=== PATIENT | male | born 1945 | race Caucasian/White ===

== ENCOUNTER 2016-12-06 16:55 | Observation (INO) ==
[2016-12-06] MEDS ORDERED: ASPIRIN 325 MG TABLET PO STA (17:18)
[2016-12-06] MEDS ORDERED: NITROGLYCERIN SL 0.4 MG TABLET SL PRN (17:18)
[2016-12-06 17:30] LABS: Basophils % 0.5 % (0.0-0.8); Eosinophils # 0.2 10*3/uL (0.0-0.87); Hemoglobin 14.8 GM/DL (14.0-18.0); Immature Granulocytes % 0.4 %; Immature Granulocytes Absolute 0.03 #; Lymphocytes # 2.5 10*3/uL (1.4-4.0); Lymphocytes % 31.6 % (21.2-54.2); Mean Corpuscular HGB Conc 33.6 GM/DL (32-36); Mean Corpuscular Hemoglobin 31 PG (27-34); Mean Corpuscular Volume 92.8 FL (87-102); Mean Platelet Volume 9.1 FL (9.6-12.0); Monocytes # 0.7 10*3/uL (0.11-0.8); Monocytes % 9.3 % (1.7-12.7); Neutrophils # 4.4 10*3/uL (1.4-7.4); Neutrophils % 56.2 % (38.7-73.9); Platelet Count 177 T/CUMM (130-400); Red Blood Count 4.74 MC/CUMM (3.8-5.5); Red Cell Distribution Width 12.7 % (9.3-17.3); White Blood Count 7.9 T/CUMM (4-12)
[2016-12-06] MEDS ORDERED: ASPIRIN 325 MG TABLET ONE (17:36)
[2016-12-06] MEDS ORDERED: NITROGLYCERIN SL 0.4 MG TABLET SL ONE (17:36)
[2016-12-06 17:56] LABS: Bilirubin,Total 0.5 MG/DL (0.2-1.0); Calcium 8.4 MG/DL (8.5-10.1); Osmolality,Calculated 275.5 MOS/KG (273-304); Potassium 3.6 MMOL/L (3.5-5.1); Total Protein 6.5 G/DL (6.4-8.3)
[2016-12-06 18:02] LABS: CKMB % 1.4 %; Troponin I Only < 0.015 NG/ML (0.00-0.045)
[2016-12-06] MEDS ORDERED: POTASSIUM CHLORIDE 20 MEQ TABLET PO PRN (19:13)
[2016-12-06] MEDS ORDERED: ENOXAPARIN 40 MG/0.4 ML SYRINGE SUBCUT SCH (19:30)
[2016-12-06 19:36] LABS: Risk Ratio 2.22; VLDL CHOLESTEROL 23.4 MG/DL
[2016-12-06] MEDS: traZODone 50 MG TABLET PO SCH (20:40)
[2016-12-06] MEDS: TICAGRELOR 90 MG TABLET PO SCH (20:40)
[2016-12-06] MEDS: ZALEPLON 5 MG CAPSULE PO SCH (20:40)
[2016-12-07] MEDS ORDERED: POTASSIUM CHLORIDE RIDER 10 MEQ in PREMIX 1 EACH IV PRN (08:30)
[2016-12-07] MEDS ORDERED: diphenhydrAMINE CAP 25 MG CAPSULE PO ONE (08:30)
[2016-12-07] MEDS ORDERED: DIAZEPAM 5 MG TABLET PO ONE (08:30)
[2016-12-07] MEDS ORDERED: MAGNESIUM SULF RIDER 2 GM in PREMIX 1 EACH IV PRN (08:30)
[2016-12-07] MEDS ORDERED: ROSUVASTATIN 20 MG TABLET PO SCH ×2 (09:00→21:00)
[2016-12-07] MEDS ORDERED: ASPIRIN EC 325 MG TABLET PO SCH (09:00)
[2016-12-07] MEDS ORDERED: methylPREDNISolone SOD SUC 125 MG/2 ML VIAL IV ONE (09:10)
[2016-12-07] MEDS: VALSARTAN/HCTZ 160-12.5 MG TABLET PO SCH (09:17)
[2016-12-07] MEDS: ISOSORBIDE MONONITRATE 30 MG TABLET PO SCH (09:22)
[2016-12-07] MEDS: PANTOPRAZOLE 40 MG TABLET PO SCH (09:22)
[2016-12-07] MEDS: TICAGRELOR 90 MG TABLET PO SCH ×2 (09:22→21:11)
[2016-12-07] MEDS: POTASSIUM CHLORIDE 20 MEQ TABLET PO SCH (09:22)
[2016-12-07] MEDS ORDERED: SODIUM CHLORIDE 0.9% 1,000 ML IV SCH (09:30)
[2016-12-07] MEDS: predniSONE 10 MG TABLET PO SCH (09:32)
[2016-12-07] MEDS: DUTASTERIDE 0.5 MG CAPSULE PO SCH (09:33)
[2016-12-07] MEDS: FAMOTIDINE 20 MG/2 ML VIAL IV SCH ×2 (09:34→21:12)
[2016-12-07] MEDS ORDERED: HEPARIN/NACL 0.9% 2 UNITS/ML 1,000 ML IV ONE (10:04)
[2016-12-07] MEDS ORDERED: LIDOCAINE 1% 20 ML VIAL ONE (10:04)
[2016-12-07] MEDS ORDERED: MIDAZOLAM 2 MG/2 ML VIAL ONE (10:06)
[2016-12-07] MEDS ORDERED: fentaNYL 100 MCG/2 ML VIAL ONE (10:06)
[2016-12-07] MEDS ORDERED: BIVALIRUDIN 250 MG VIAL IV ONE (10:36)
[2016-12-07] MEDS ORDERED: NITROGLYCERIN DRIP 50 MG/250 ML BOTTLE IV ONE (10:55)
[2016-12-07] MEDS ORDERED: TICAGRELOR 90 MG TABLET ONE (11:01)
[2016-12-07] MEDS: ZALEPLON 5 MG CAPSULE PO SCH (21:11)
[2016-12-07] MEDS: traZODone 50 MG TABLET PO SCH (21:12)
[2016-12-08 03:49] LABS: Basophils % 0.1 % (0.0-0.8); Calcium 8.4 MG/DL (8.5-10.1); Hemoglobin 13.5 GM/DL (14.0-18.0); Immature Granulocytes % 0.6 %; Immature Granulocytes Absolute 0.07 #; Lymphocytes % 8.7 % (21.2-54.2); Magnesium 2.1 MG/DL (1.8-2.4); Mean Corpuscular HGB Conc 33.8 GM/DL (32-36); Mean Corpuscular Hemoglobin 31 PG (27-34); Mean Corpuscular Volume 92.6 FL (87-102); Mean Platelet Volume 9.9 FL (9.6-12.0); Monocytes # 0.6 10*3/uL (0.11-0.8); Monocytes % 4.8 % (1.7-12.7); Neutrophils # 10.1 10*3/uL (1.4-7.4); Neutrophils % 85.8 % (38.7-73.9); Osmolality,Calculated 277.5 MOS/KG (273-304); Platelet Count 182 T/CUMM (130-400); Potassium 3.9 MMOL/L (3.5-5.1); Red Blood Count 4.32 MC/CUMM (3.8-5.5); Red Cell Distribution Width 12.7 % (9.3-17.3); White Blood Count 11.8 T/CUMM (4-12)
[2016-12-08 07:51] VITALS: BP 136/85
[2016-12-08] MEDS ORDERED: ASPIRIN EC 81 MG TABLET PO SCH (09:00)
[2016-12-08] MEDS: FAMOTIDINE 20 MG/2 ML VIAL IV SCH (09:05)
[2016-12-08] MEDS: PANTOPRAZOLE 40 MG TABLET PO SCH (09:11)
[2016-12-08] MEDS: DUTASTERIDE 0.5 MG CAPSULE PO SCH (09:11)
[2016-12-08] MEDS: TICAGRELOR 90 MG TABLET PO SCH (09:11)
[2016-12-08] MEDS: ISOSORBIDE MONONITRATE 30 MG TABLET PO SCH (09:12)
[2016-12-08] MEDS: predniSONE 10 MG TABLET PO SCH (09:12)
[2016-12-08] MEDS: VALSARTAN/HCTZ 160-12.5 MG TABLET PO SCH (09:12)
[2016-12-08] MEDS: POTASSIUM CHLORIDE 20 MEQ TABLET PO SCH (09:12)
== END 2016-12-08 11:40 | disposition home or self-care (01) ==
LOC: N.EDINP 16:55 → N.ED 16:55 → N.TELES 19:49
PROVIDERS: ADMIT Internal Medicine; ATTEND Internal Medicine

== ENCOUNTER 2017-02-22 10:51 | Inpatient (IN) ==
[2017-02-22] MEDS ORDERED: ALBUTEROL 2.5 MG/3 ML NEB RESP TX STA ×2 (11:41→13:07)
[2017-02-22 12:06] LABS: Basophils % 0.2 % (0.0-0.8); Eosinophils % 0.2 % (0.00-10.9); Hematocrit 46.4 VOL% (42.0-52.0); Hemoglobin 15.1 GM/DL (14.0-18.0); Immature Granulocytes % 0.3 %; Immature Granulocytes Absolute 0.02 #; Lymphocytes # 1.3 10*3/uL (1.4-4.0); Lymphocytes % 20.9 % (21.2-54.2); Mean Corpuscular HGB Conc 32.5 GM/DL (32-36); Mean Corpuscular Hemoglobin 30 PG (27-34); Mean Corpuscular Volume 92.6 FL (87-102); Mean Platelet Volume 9.4 FL (9.6-12.0); Monocytes # 0.7 10*3/uL (0.11-0.8); Neutrophils # 4.2 10*3/uL (1.4-7.4); Neutrophils % 67.4 % (38.7-73.9); Platelet Count 168 T/CUMM (130-400); Red Blood Count 5.01 MC/CUMM (3.8-5.5); Red Cell Distribution Width 13.2 % (9.3-17.3); White Blood Count 6.2 T/CUMM (4-12)
[2017-02-22] MEDS ORDERED: ALBUTEROL 2.5 MG/3 ML NEB RESP TX ONE ×2 (12:08→14:14)
[2017-02-22] MEDS ORDERED: methylPREDNISolone SOD SUC 125 MG/2 ML VIAL ONE (12:11)
[2017-02-22 12:16] LABS: PT Patient Result 10.1 SECS
[2017-02-22] MEDS ORDERED: methylPREDNISolone SOD SUC 125 MG/2 ML VIAL IV STA (12:24)
[2017-02-22 12:37] LABS: Albumin 3.2 G/DL (3.4-5.0); Bilirubin,Total 0.4 MG/DL (0.2-1.0); Calcium 8.8 MG/DL (8.5-10.1); Osmolality,Calculated 275.1 MOS/KG (273-304); Potassium 4.1 MMOL/L (3.5-5.1); Total Protein 7.2 G/DL (6.4-8.3)
[2017-02-22] MEDS ORDERED: SODIUM CHLORIDE 0.9% 500 ML IV STA (13:07)
[2017-02-22] MEDS ORDERED: ONDANSETRON 4 MG/2 ML VIAL IV PRN (14:45)
[2017-02-22] MEDS ORDERED: DOCUSATE SODIUM 100 MG CAPSULE PO PRN (14:45)
[2017-02-22] MEDS ORDERED: ACETAMINOPHEN 325 MG TABLET PO PRN (14:45)
[2017-02-22] MEDS ORDERED: LEVOFLOXACIN INJ 150 ML IV ONE (16:18)
[2017-02-22] MEDS: SODIUM CHLORIDE 0.9% 1,000 ML IV SCH (16:23)
[2017-02-22] MEDS: LEVOFLOXACIN INJ 750 MG in PREMIX 1 EACH IV SCH (16:25)
[2017-02-22] MEDS: ROSUVASTATIN 20 MG TABLET PO SCH (21:58)
[2017-02-22] MEDS: TICAGRELOR 90 MG TABLET PO SCH (21:58)
[2017-02-22] MEDS: methylPREDNISolone SOD SUC 40 MG/1 ML VIAL IV SCH (22:01)
[2017-02-22] MEDS: ZALEPLON 5 MG CAPSULE PO PRN (23:49)
[2017-02-23 06:48] LABS: Hematocrit 44.2 VOL% (42.0-52.0); Hemoglobin 14.6 GM/DL (14.0-18.0); Immature Granulocytes % 0.4 %; Immature Granulocytes Absolute 0.02 #; Lymphocytes # 0.7 10*3/uL (1.4-4.0); Lymphocytes % 11.4 % (21.2-54.2); Mean Corpuscular Hemoglobin 30 PG (27-34); Mean Corpuscular Volume 91.7 FL (87-102); Mean Platelet Volume 9.4 FL (9.6-12.0); Monocytes # 0.3 10*3/uL (0.11-0.8); Neutrophils # 4.7 10*3/uL (1.4-7.4); Neutrophils % 82.2 % (38.7-73.9); Platelet Count 160 T/CUMM (130-400); Red Blood Count 4.82 MC/CUMM (3.8-5.5); White Blood Count 5.7 T/CUMM (4-12)
[2017-02-23] MEDS: ASPIRIN EC 81 MG TABLET PO SCH (09:55)
[2017-02-23] MEDS: methylPREDNISolone SOD SUC 40 MG/1 ML VIAL IV SCH ×2 (09:55→21:26)
[2017-02-23] MEDS: PANTOPRAZOLE 40 MG TABLET PO SCH (09:55)
[2017-02-23] MEDS: POTASSIUM CHLORIDE 20 MEQ TABLET PO SCH (09:56)
[2017-02-23] MEDS: TICAGRELOR 90 MG TABLET PO SCH ×2 (09:56→21:25)
[2017-02-23] MEDS: SODIUM CHLORIDE 0.9% 1,000 ML IV SCH ×2 (09:56→18:52)
[2017-02-23] MEDS: guaiFENesin 200 MG/10 ML UDCUP PO PRN ×2 (18:23→22:43)
[2017-02-23] MEDS: ZALEPLON 5 MG CAPSULE PO PRN (21:25)
[2017-02-23] MEDS: ROSUVASTATIN 20 MG TABLET PO SCH (21:25)
[2017-02-24 06:54] LABS: Basophils % 0.1 % (0.0-0.8); Hematocrit 42.3 VOL% (42.0-52.0); Hemoglobin 13.5 GM/DL (14.0-18.0); Immature Granulocytes % 0.8 %; Immature Granulocytes Absolute 0.09 #; Lymphocytes # 0.9 10*3/uL (1.4-4.0); Lymphocytes % 8.4 % (21.2-54.2); Mean Corpuscular HGB Conc 31.9 GM/DL (32-36); Mean Corpuscular Hemoglobin 30 PG (27-34); Mean Corpuscular Volume 94.8 FL (87-102); Mean Platelet Volume 9.5 FL (9.6-12.0); Monocytes # 0.4 10*3/uL (0.11-0.8); Monocytes % 3.9 % (1.7-12.7); Neutrophils # 9.6 10*3/uL (1.4-7.4); Neutrophils % 86.8 % (38.7-73.9); Platelet Count 148 T/CUMM (130-400); Red Blood Count 4.46 MC/CUMM (3.8-5.5); Red Cell Distribution Width 13.2 % (9.3-17.3); White Blood Count 11.1 T/CUMM (4-12)
[2017-02-24] MEDS ORDERED: DUTASTERIDE 0.5 MG CAPSULE PO SCH (09:00)
[2017-02-24] MEDS: POTASSIUM CHLORIDE 20 MEQ TABLET PO SCH (09:00)
[2017-02-24] MEDS: PANTOPRAZOLE 40 MG TABLET PO SCH (09:00)
[2017-02-24] MEDS: methylPREDNISolone SOD SUC 40 MG/1 ML VIAL IV SCH (09:00)
[2017-02-24] MEDS: ASPIRIN EC 81 MG TABLET PO SCH (09:00)
[2017-02-24] MEDS: TICAGRELOR 90 MG TABLET PO SCH (09:00)
[2017-02-24] MEDS: SODIUM CHLORIDE 0.9% 1,000 ML IV SCH (09:02)
[2017-02-24] MEDS: LEVOFLOXACIN INJ 750 MG in PREMIX 1 EACH IV SCH (10:16)
[2017-02-24 11:36] VITALS: BP 129/71
== END 2017-02-24 15:57 | disposition home or self-care (01) | DRG 202 ==
LOC: N.ED 10:51 → SUATTDRO 13:13 → N.EDINP 13:13 → N.5E 18:26
PROVIDERS: ADMIT Hospitalist; ATTEND Pediatrics

== ENCOUNTER 2017-11-22 14:30 | Observation (INO) ==
[2017-11-22 15:45] LABS: Basophils % 0.6 % (0.0-0.8); Eosinophils # 0.2 10*3/uL (0.0-0.87); Eosinophils % 3.6 % (0.00-10.9); Hematocrit 38.5 VOL% (42.0-52.0); Hemoglobin 11.9 GM/DL (14.0-18.0); Immature Granulocytes % 0.2 %; Immature Granulocytes Absolute 0.01 #; Lymphocytes # 1.3 10*3/uL (1.4-4.0); Lymphocytes % 25.1 % (21.2-54.2); Mean Corpuscular HGB Conc 30.9 GM/DL (32-36); Mean Corpuscular Hemoglobin 30 PG (27-34); Mean Corpuscular Volume 97.2 FL (87-102); Mean Platelet Volume 9.2 FL (9.6-12.0); Monocytes # 0.4 10*3/uL (0.11-0.8); Monocytes % 7.5 % (1.7-12.7); Neutrophils # 3.4 10*3/uL (1.4-7.4); Platelet Count 182 T/CUMM (130-400); Red Blood Count 3.96 MC/CUMM (3.8-5.5); Red Cell Distribution Width 14.6 % (9.3-17.3); White Blood Count 5.3 T/CUMM (4-12)
[2017-11-22 16:05] LABS: Calcium 8.3 MG/DL (8.5-10.1); Osmolality,Calculated 283.3 MOS/KG (273-304); Potassium 3.7 MMOL/L (3.5-5.1)
[2017-11-22] MEDS ORDERED: ACETAMINOPHEN 325 MG TABLET PO PRN (19:54)
[2017-11-22] MEDS: CEFTAROLINE 600 MG in SODIUM CHLORIDE 0.9% 100 ML IV SCH (21:29)
[2017-11-22] MEDS: ENOXAPARIN 40 MG/0.4 ML SYRINGE SUBCUT SCH (21:31)
[2017-11-23 06:32] LABS: Basophils % 0.8 % (0.0-0.8); Eosinophils # 0.3 10*3/uL (0.0-0.87); Eosinophils % 5.4 % (0.00-10.9); Hematocrit 42.3 VOL% (42.0-52.0); Hemoglobin 12.8 GM/DL (14.0-18.0); Immature Granulocytes % 0.2 %; Immature Granulocytes Absolute 0.01 #; Lymphocytes # 1.6 10*3/uL (1.4-4.0); Lymphocytes % 32.4 % (21.2-54.2); Mean Corpuscular HGB Conc 30.3 GM/DL (32-36); Mean Corpuscular Hemoglobin 30 PG (27-34); Mean Corpuscular Volume 98.8 FL (87-102); Mean Platelet Volume 9.6 FL (9.6-12.0); Monocytes # 0.5 10*3/uL (0.11-0.8); Monocytes % 10.9 % (1.7-12.7); Neutrophils # 2.4 10*3/uL (1.4-7.4); Neutrophils % 50.3 % (38.7-73.9); Platelet Count 202 T/CUMM (130-400); Red Blood Count 4.28 MC/CUMM (3.8-5.5); Red Cell Distribution Width 14.7 % (9.3-17.3); White Blood Count 4.9 T/CUMM (4-12)
[2017-11-23 07:02] LABS: Calcium 8.7 MG/DL (8.5-10.1); Osmolality,Calculated 281.3 MOS/KG (273-304); Potassium 3.6 MMOL/L (3.5-5.1)
[2017-11-23] MEDS: CEFTAROLINE 600 MG in SODIUM CHLORIDE 0.9% 100 ML IV SCH ×2 (09:41→21:14)
[2017-11-23] MEDS: ONDANSETRON 4 MG/2 ML VIAL IV PRN (09:44)
[2017-11-23] MEDS ORDERED: NITROGLYCERIN SL 0.4 MG TABLET SL PRN (16:32)
[2017-11-23] MEDS ORDERED: IBUPROFEN 800 MG TABLET PO PRN (16:33)
[2017-11-23] MEDS ORDERED: ISOSORBIDE MONONITRATE 30 MG TABLET PO SCH (17:00)
[2017-11-23] MEDS ORDERED: VALSARTAN/HCTZ 160-12.5 MG TABLET PO SCH (17:00)
[2017-11-23] MEDS ORDERED: DUTASTERIDE 0.5 MG CAPSULE PO SCH (17:00)
[2017-11-23] MEDS ORDERED: NITROGLYCERIN SL 0.4 MG TABLET SL SCH (17:00)
[2017-11-23] MEDS ORDERED: BEPOTASTINE BESILATE BOTH EYES SCH (21:00)
[2017-11-23] MEDS ORDERED: TICAGRELOR 90 MG TABLET PO SCH (21:00)
[2017-11-23] MEDS ORDERED: NON-FORMULARY MEDICATION (Zolpidem Tartrate [Ambien] 10 MG) PO SCH (21:00)
[2017-11-23] MEDS ORDERED: GABAPENTIN 300 MG CAPSULE PO SCH ×2 (21:00)
[2017-11-23] MEDS ORDERED: ROSUVASTATIN 20 MG TABLET PO SCH (21:00)
[2017-11-23] MEDS: ZOLPIDEM 5 MG TABLET PO SCH (21:12)
[2017-11-23] MEDS: ROSUVASTATIN 20 MG TABLET PO SCH (21:12)
[2017-11-23] MEDS: TICAGRELOR 90 MG TABLET PO SCH (21:13)
[2017-11-23] MEDS: ENOXAPARIN 40 MG/0.4 ML SYRINGE SUBCUT SCH (21:13)
[2017-11-24] MEDS: VALSARTAN/HCTZ 160-12.5 MG TABLET PO SCH (08:52)
[2017-11-24] MEDS: POTASSIUM CHLORIDE 20 MEQ TABLET PO SCH (08:52)
[2017-11-24] MEDS: TICAGRELOR 90 MG TABLET PO SCH ×2 (08:52→20:30)
[2017-11-24] MEDS: ISOSORBIDE MONONITRATE 30 MG TABLET PO SCH (08:53)
[2017-11-24] MEDS: CEFTAROLINE 600 MG in SODIUM CHLORIDE 0.9% 100 ML IV SCH ×2 (08:53→20:39)
[2017-11-24] MEDS ORDERED: ASPIRIN EC 81 MG TABLET PO SCH ×2 (09:00)
[2017-11-24] MEDS ORDERED: DUTASTERIDE 0.5 MG CAPSULE PO SCH (09:00)
[2017-11-24] MEDS: ONDANSETRON 4 MG/2 ML VIAL IV PRN (10:14)
[2017-11-24] MEDS: ROSUVASTATIN 20 MG TABLET PO SCH (20:30)
[2017-11-24] MEDS: ZOLPIDEM 5 MG TABLET PO SCH (20:30)
[2017-11-24] MEDS: ENOXAPARIN 40 MG/0.4 ML SYRINGE SUBCUT SCH (20:30)
[2017-11-25] MEDS ORDERED: HydrOXYzine PAMOATE 25 MG CAPSULE PO PRN (00:40)
[2017-11-25 07:50] VITALS: BP 108/56
[2017-11-25] MEDS: CEFTAROLINE 600 MG in SODIUM CHLORIDE 0.9% 100 ML IV SCH (08:34)
[2017-11-25] MEDS: VALSARTAN/HCTZ 160-12.5 MG TABLET PO SCH (08:34)
[2017-11-25] MEDS: ISOSORBIDE MONONITRATE 30 MG TABLET PO SCH (08:34)
[2017-11-25] MEDS: POTASSIUM CHLORIDE 20 MEQ TABLET PO SCH (08:34)
[2017-11-25] MEDS: TICAGRELOR 90 MG TABLET PO SCH (08:34)
== END 2017-11-25 13:20 | disposition home or self-care (01) ==
LOC: N.ED 14:30 → N.EDINP 14:30 → N.2E 19:53
PROVIDERS: ADMIT Internal Medicine; ATTEND Internal Medicine

== ENCOUNTER 2019-10-15 17:51 | Inpatient (IN) ==
[2019-10-15] MEDS ORDERED: NOREPINEPHRINE 8 MG in SODIUM CHLORIDE 0.9% 242 ML IV PRN (18:19)
[2019-10-15] MEDS ORDERED: SODIUM CHLORIDE 0.9% 500 ML IV STA (18:20)
[2019-10-15] MEDS ORDERED: NOREPINEPHRINE 4 MG/4 ML VIAL IV ONE (18:20)
[2019-10-15 18:47] LABS: Basophils % 0.2 % (0.0-0.8); Eosinophils # 0.1 10*3/uL (0.0-0.87); Hematocrit 39.7 VOL% (42.0-52.0); Hemoglobin 12.2 GM/DL (14.0-18.0); Immature Granulocytes % 0.2 %; Immature Granulocytes Absolute 0.02 #; Lymphocytes # 1.3 10*3/uL (1.4-4.0); Lymphocytes % 15.2 % (21.2-54.2); Mean Corpuscular HGB Conc 30.7 GM/DL (32-36); Mean Corpuscular Volume 95.4 FL (87-102); Mean Platelet Volume 9.6 FL (9.6-12.0); Monocytes % 10.9 % (1.7-12.7); Neutrophils % 72.5 % (38.7-73.9); Platelet Count 252 T/CUMM (130-400); Red Blood Count 4.16 MC/CUMM (3.8-5.5); Red Cell Distribution Width 14.5 % (9.3-17.3); White Blood Count 8.8 T/CUMM (4-12)
[2019-10-15] MEDS ORDERED: MEROPENEM 500 MG in SODIUM CHLORIDE 0.9% 100 ML IV ONE (19:00)
[2019-10-15 19:01] LABS: Albumin 2.4 G/DL (3.4-5.0); Bilirubin,Total 0.5 MG/DL (0.2-1.0)
[2019-10-15 19:07] LABS: Troponin I 0.019 NG/ML (0.00-0.045)
[2019-10-15 19:09] LABS: INR 1.2; PT Patient Result 12.4 SECS (9.8-11.9)
[2019-10-15 19:46] LABS: Apearance,Urine CLEAR (Clear); Bacteria,Urine Occasional /HPF (Few); Bilirubin,Urine Negative (Negative); Blood, Urine Small mg/dL (Negative); Glucose,Urine (UA) Negative (Negative); Hyaline Casts,Urine 7 /LPF (0-3); Ketones,Urine Negative (Negative); Mucus,Urine Occasional /LPF (Occasional); Nitrite,Urine Negative (Negative); Protein,Urine Negative; RBC,Urine 3 /HPF (0-4); Squamous Epithelial Cell,Urine Occasional /HPF (0-10); Urine Color Yellow (Yellow); Urine Urobilinogen < 2.0 EU/DL (0.2-1.0); WBC,Urine 4 /HPF (0-6)
[2019-10-15] MEDS ORDERED: VANCOMYCIN INJ 1,000 MG in SODIUM CHLORIDE 0.9% 250 ML IV PRN (21:11)
[2019-10-15] MEDS: ENOXAPARIN 30 MG/0.3 ML SYRINGE SUBCUT SCH (21:19)
[2019-10-15] MEDS: SODIUM CHLORIDE 0.9% 1,000 ML IV SCH (21:20)
[2019-10-15] MEDS: PANTOPRAZOLE 40 MG VIAL IV SCH (21:22)
[2019-10-15] MEDS: ALBUMIN 25% 12.5 GM in PREMIX 1 EACH IV SCH (22:34)
[2019-10-15] MEDS ORDERED: ZALEPLON 5 MG CAPSULE PO ONE (23:00)
[2019-10-15] MEDS ORDERED: VANCOMYCIN INJ 2,000 MG in SODIUM CHLORIDE 0.9% 500 ML IV ONE (23:00)
[2019-10-15] MEDS: APIXABAN 5 MG TABLET PO SCH (23:55)
[2019-10-16] MEDS: ALBUMIN 25% 12.5 GM in PREMIX 1 EACH IV SCH ×3 (04:42→19:05)
[2019-10-16 05:45] LABS: Basophils % 0.3 % (0.0-0.8); Eosinophils # 0.1 10*3/uL (0.0-0.87); Eosinophils % 1.5 % (0.00-10.9); Hematocrit 37.2 VOL% (42.0-52.0); Hemoglobin 11.4 GM/DL (14.0-18.0); Immature Granulocytes % 0.3 %; Immature Granulocytes Absolute 0.02 #; Lymphocytes % 15.2 % (21.2-54.2); Mean Corpuscular HGB Conc 30.6 GM/DL (32-36); Mean Corpuscular Volume 94.9 FL (87-102); Mean Platelet Volume 9.6 FL (9.6-12.0); Neutrophils % 71.7 % (38.7-73.9); Platelet Count 228 T/CUMM (130-400); Red Blood Count 3.92 MC/CUMM (3.8-5.5); Red Cell Distribution Width 14.5 % (9.3-17.3); White Blood Count 6.6 T/CUMM (4-12)
[2019-10-16] MEDS: SODIUM CHLORIDE 0.9% 1,000 ML IV SCH ×3 (05:55→21:37)
[2019-10-16 06:11] LABS: Albumin 2.4 G/DL (3.4-5.0); Bilirubin,Total 0.6 MG/DL (0.2-1.0); Calcium 8.2 MG/DL (8.5-10.1); Osmolality,Calculated 289.4 MOS/KG (273-304); Risk Ratio 2.62; Total Protein 5.8 G/DL (6.4-8.3); VLDL CHOLESTEROL 23.2 MG/DL
[2019-10-16] MEDS: APIXABAN 5 MG TABLET PO SCH ×2 (08:37→21:28)
[2019-10-16] MEDS: POTASSIUM CHLORIDE 20 MEQ TABLET PO SCH ×3 (11:40→19:04)
[2019-10-16] MEDS: PANTOPRAZOLE 40 MG VIAL IV SCH (19:05)
[2019-10-16] MEDS ORDERED: MEROPENEM 500 MG in SODIUM CHLORIDE 0.9% 100 ML IV SCH (21:00)
[2019-10-16] MEDS ORDERED: MELATONIN 3 MG TABLET PO SCH ×2 (21:00→21:07)
[2019-10-16] MEDS: ENOXAPARIN 30 MG/0.3 ML SYRINGE SUBCUT SCH (21:29)
[2019-10-16] MEDS: MELATONIN 3 MG TABLET PO SCH (21:32)
[2019-10-17] MEDS: ONDANSETRON 4 MG/2 ML VIAL IV PRN ×2 (02:29→16:44)
[2019-10-17 06:50] LABS: Basophils % 0.6 % (0.0-0.8); Eosinophils # 0.1 10*3/uL (0.0-0.87); Eosinophils % 1.5 % (0.00-10.9); Hematocrit 37.6 VOL% (42.0-52.0); Hemoglobin 11.4 GM/DL (14.0-18.0); Immature Granulocytes % 0.5 %; Immature Granulocytes Absolute 0.03 #; Lymphocytes # 1.6 10*3/uL (1.4-4.0); Lymphocytes % 25.2 % (21.2-54.2); Mean Corpuscular HGB Conc 30.3 GM/DL (32-36); Mean Corpuscular Volume 96.4 FL (87-102); Mean Platelet Volume 9.6 FL (9.6-12.0); Monocytes % 10.7 % (1.7-12.7); Neutrophils % 61.5 % (38.7-73.9); Platelet Count 265 T/CUMM (130-400); Red Cell Distribution Width 14.5 % (9.3-17.3); White Blood Count 6.2 T/CUMM (4-12)
[2019-10-17 07:01] LABS: Calcium 8.8 MG/DL (8.5-10.1); Osmolality,Calculated 288.8 MOS/KG (273-304)
[2019-10-17] MEDS: SODIUM CHLORIDE 0.9% 1,000 ML IV SCH (07:01)
[2019-10-17] MEDS ORDERED: VANCOMYCIN INJ 1,000 MG in SODIUM CHLORIDE 0.9% 250 ML IV ONE (09:00)
[2019-10-17] MEDS: MEROPENEM 500 MG in SODIUM CHLORIDE 0.9% 100 ML IV SCH ×2 (09:45→16:40)
[2019-10-17] MEDS ORDERED: FUROSEMIDE 40 MG/4 ML VIAL IV ONE (10:49)
[2019-10-17] MEDS: PROMETHAZINE 25 MG/1 ML VIAL IM PRN ×2 (12:20→18:26)
[2019-10-17] MEDS: APIXABAN 5 MG TABLET PO SCH (12:38)
[2019-10-17] MEDS: PANTOPRAZOLE 40 MG VIAL IV SCH (18:03)
[2019-10-17] MEDS: traZODone 50 MG TABLET PO PRN (21:50)
[2019-10-17] MEDS: MELATONIN 3 MG TABLET PO SCH (21:50)
[2019-10-17] MEDS: ALBUTEROL/IPRATROPIUM 3 ML NEB RESP TX SCH ×2 (23:29→23:37)
[2019-10-18] MEDS: MEROPENEM 500 MG in SODIUM CHLORIDE 0.9% 100 ML IV SCH ×2 (00:30→08:47)
[2019-10-18 06:18] LABS: Calcium 9.6 MG/DL (8.5-10.1)
[2019-10-18] MEDS: ALBUTEROL/IPRATROPIUM 3 ML NEB RESP TX SCH ×4 (06:39→19:29)
[2019-10-18 06:50] LABS: Basophils % 0.5 % (0.0-0.8); Eosinophils # 0.1 10*3/uL (0.0-0.87); Eosinophils % 2.2 % (0.00-10.9); Hematocrit 41.4 VOL% (42.0-52.0); Immature Granulocytes % 0.2 %; Immature Granulocytes Absolute 0.01 #; Lymphocytes # 1.6 10*3/uL (1.4-4.0); Lymphocytes % 26.4 % (21.2-54.2); Mean Corpuscular HGB Conc 30.4 GM/DL (32-36); Mean Corpuscular Volume 96.7 FL (87-102); Mean Platelet Volume 9.6 FL (9.6-12.0); Monocytes % 12.2 % (1.7-12.7); Neutrophils % 58.5 % (38.7-73.9); Platelet Count 261 T/CUMM (130-400); Red Blood Count 4.28 MC/CUMM (3.8-5.5); Red Cell Distribution Width 14.4 % (9.3-17.3)
[2019-10-18 06:51] LABS: Hemoglobin 12.6 GM/DL (14.0-18.0)
[2019-10-18] MEDS ORDERED: POTASSIUM CHLORIDE 20 MEQ TABLET PO ONE (07:39)
[2019-10-18] MEDS ORDERED: APIXABAN 5 MG TABLET PO SCH (09:00)
[2019-10-18] MEDS: CLORAZEPATE 3.75 MG TABLET PO PRN (11:08)
[2019-10-18] MEDS: PANTOPRAZOLE 40 MG VIAL IV SCH (18:26)
[2019-10-18] MEDS: MELATONIN 3 MG TABLET PO SCH (21:20)
[2019-10-18] MEDS: traZODone 50 MG TABLET PO PRN (21:20)
[2019-10-19] MEDS: ALBUTEROL/IPRATROPIUM 3 ML NEB RESP TX SCH ×4 (01:05→19:00)
[2019-10-19 05:09] LABS: Basophils # 0.1 10*3/uL (0.0-0.2); Basophils % 0.8 % (0.0-0.8); Eosinophils # 0.1 10*3/uL (0.0-0.87); Eosinophils % 1.9 % (0.00-10.9); Hematocrit 40.8 VOL% (42.0-52.0); Hemoglobin 12.5 GM/DL (14.0-18.0); Immature Granulocytes % 0.2 %; Immature Granulocytes Absolute 0.01 #; Lymphocytes # 1.9 10*3/uL (1.4-4.0); Lymphocytes % 31.9 % (21.2-54.2); Mean Corpuscular HGB Conc 30.6 GM/DL (32-36); Mean Corpuscular Volume 95.8 FL (87-102); Mean Platelet Volume 8.6 FL (9.6-12.0); Monocytes % 10.5 % (1.7-12.7); Neutrophils % 54.7 % (38.7-73.9); Platelet Count 259 T/CUMM (130-400); Red Blood Count 4.26 MC/CUMM (3.8-5.5); Red Cell Distribution Width 14.1 % (9.3-17.3); White Blood Count 5.9 T/CUMM (4-12)
[2019-10-19 05:24] LABS: Calcium 9.5 MG/DL (8.5-10.1); Osmolality,Calculated 280.4 MOS/KG (273-304)
[2019-10-19] MEDS: ONDANSETRON 4 MG/2 ML VIAL IV PRN ×2 (05:28→19:21)
[2019-10-19] MEDS: CLOPIDOGREL 75 MG TABLET PO SCH (08:23)
[2019-10-19] MEDS ORDERED: SERTRALINE 50 MG TABLET PO SCH (09:00)
[2019-10-19] MEDS: CLORAZEPATE 3.75 MG TABLET PO PRN (12:50)
[2019-10-19] MEDS: traMADol 50 MG TABLET PO PRN ×2 (13:44→20:09)
[2019-10-19] MEDS ORDERED: FUROSEMIDE 40 MG/4 ML VIAL IV ONE (15:54)
[2019-10-19] MEDS: PANTOPRAZOLE 40 MG VIAL IV SCH (18:22)
[2019-10-19] MEDS: MELATONIN 3 MG TABLET PO SCH (20:08)
[2019-10-19] MEDS: traZODone 50 MG TABLET PO PRN (20:08)
[2019-10-20] MEDS: ALBUTEROL/IPRATROPIUM 3 ML NEB RESP TX SCH ×2 (00:45→07:26)
[2019-10-20] MEDS: ONDANSETRON 4 MG/2 ML VIAL IV PRN (06:32)
[2019-10-20 07:17] LABS: Basophils # 0.1 10*3/uL (0.0-0.2); Eosinophils # 0.1 10*3/uL (0.0-0.87); Hematocrit 42.2 VOL% (42.0-52.0); Hemoglobin 12.9 GM/DL (14.0-18.0); Immature Granulocytes % 0.2 %; Immature Granulocytes Absolute 0.01 #; Lymphocytes # 1.6 10*3/uL (1.4-4.0); Lymphocytes % 31.7 % (21.2-54.2); Mean Corpuscular HGB Conc 30.6 GM/DL (32-36); Mean Platelet Volume 8.9 FL (9.6-12.0); Monocytes % 10.2 % (1.7-12.7); Neutrophils % 54.9 % (38.7-73.9); Platelet Count 280 T/CUMM (130-400); Red Blood Count 4.44 MC/CUMM (3.8-5.5); Red Cell Distribution Width 14.1 % (9.3-17.3)
[2019-10-20 08:01] LABS: Calcium 9.3 MG/DL (8.5-10.1)
[2019-10-20 08:06] LABS: Osmolality,Calculated 275.7 MOS/KG (273-304)
[2019-10-20] MEDS: CLOPIDOGREL 75 MG TABLET PO SCH (08:13)
[2019-10-20] MEDS ORDERED: DORNASE ALFA 2.5 MG/2.5 ML VIAL RESP TX SCH (10:30)
[2019-10-20] MEDS ORDERED: POTASSIUM CHLORIDE 10 MEQ TABLET PO SCH (11:30)
[2019-10-20] MEDS ORDERED: MAGNESIUM CHLORIDE 64 MG TABLET PO SCH (11:30)
[2019-10-20 11:31] VITALS: BP 129/75
[2019-10-20] MEDS ORDERED: MAGNESIUM SULF RIDER 2 GM in PREMIX 1 EACH IV PRN (11:33)
[2019-10-20] MEDS ORDERED: MAGNESIUM SULF RIDER 4 GM in PREMIX 1 EACH IV PRN (11:33)
[2019-10-20] MEDS ORDERED: POTASSIUM CHLORIDE 20 MEQ TABLET PO PRN (11:34)
[2019-10-24] MEDS ORDERED: BENZONATATE 100 MG CAPSULE PO ONE (07:30)
[2019-10-24] MEDS ORDERED: diphenhydrAMINE 50 MG/1 ML VIAL IM ONE (07:30)
[2019-10-24] MEDS ORDERED: LIDOCAINE 2% 20 ML VIAL RESP TX ONE (08:00)
[2019-10-24] MEDS ORDERED: LIDOCAINE 2% VISCOUS 100 ML BOTTLE SWISH/SPIT ONE (08:00)
[2019-10-24] MEDS ORDERED: LIDOCAINE 1% 20 ML VIAL MISC INJ ONE (08:00)
== END 2019-10-20 16:33 | DRG 682 ==
LOC: EDUNIT# → EDBD → N.ED 17:51 → N.EDINP 18:36 → SUATTDRO 18:36 → N.ICU 20:46 → N.TELES 10-17 14:07
PROVIDERS: ADMIT Internal Medicine; ATTEND Internal Medicine